=== PATIENT | female | born 1995 | race Two or more races ===

== ENCOUNTER 2024-09-17 16:55 | Emergency (ER) | payer MEDICAID, OTHER ==
[~2024-09-17] VITALS: Ht 177.8 cm; Wt 127.0 kg
[2024-09-17 18:20] VITALS: PULSE 89; RESP 15; O2SAT 98
--- NOTE | 2024-09-17 18:30 | DVH ---
EXAM: CT CERVICAL WITHOUT CONTRAST INDICATION: HEAD INJURY EXAM DATE: 09/17/2024 05:50 PM COMPARISON: None TECHNIQUE: Multiple axial CT images of the cervical spine were obtained using bone algorithm. Axial a nd coronal reformatting was done. Bone and soft tissue windows were reviewed. Radiation Dose Information: CT Dose: CTDI volume is 27.89 mGy. Dose-length product is 660.28 mGy*cm FINDINGS: The cervical alignment is intact. No acute cervical spine fracture is identified. The vertebral body heights are intact. No suspicious osseous lesions are identified. There is straightening of the normal cervical lordotic curve which may be secondary to patient positi oning or muscle spasm. There is no prevertebral soft tissue swelling. IMPRESSION: 1. No evidence of acute cervical spine fracture or traumatic malalignment. 2. No stenosis of the central spinal canal. All CT scans at this medical facility are performed using dose modulation techniques as appropriate t o a performed exam including the following: Automated exposure control was utilized; adjustment of th e MA and/or KV according to patient size; and use of iterative reconstruction technique.
--- NOTE | 2024-09-17 18:34 | ED.PDOC ---
Mult. trauma (HPI) HPI Comments 28-year-old female who came to ER for head injury. Patient was riding a horse earlier, she fell off the horse falling on her side, just as the horse kicked her on the head as she lay on the ground. Positive loss of consciousness. Noted laceration of the left occipital area. Patient currently complaining of headaches. No nausea or vomiting noted Chief Complaint: Head Injury Time Seen by MD: 18:33 Primary Care Provider: UNKNOWN Reviewed notes: Nurses Notes Allergies: Coded Allergies: NO KNOWN ALLERGIES (Unverified , 09/17/24) Information Source: Patient Mode of Arrival: Ambulatory Severity: Moderate Timing: Minutes Duration: Since onset Prehospital treatment: None Location: Head Location of laceration: Head Mechanism: Direct blow, Fall Associated signs and symtoms: Headache Past Medical History PAST MEDICAL HISTORY: HTN Surgical History: Denies all surgeries ULTRASOUND MANAGER History: Denies all ULTRASOUND MANAGER Hx Family History Family History: Reviewed,noncontributory to illness Social History Smoker: Non-Smoker Alcohol: Denies ETOH Use Drugs: Denies Drug Use Lives In: Home Constitutional: denies: chills, diaphoresis, fatigue, fever, malaise, sweats, weakness, others EENTM: denies: blurred vision, double vision, ear bleeding, ear discharge, ear drainage, ear pain, ear ringing, eye pain, eye redness, hearing loss, mouth pain, mouth swelling, nasal discharge, nose bleeding, nose congestion, nose pain, photophobia, tearing, throat pain, throat swelling, voice changes, others Respiratory: denies: cough, hemoptysis, orthopnea, SOB at rest, shortness of breath, SOB with excertion, stridor, wheezing, others Cardiovascular: denies: chest pain, dizzy spells, diaphoresis, Dyspnea on exertion, edema, irregular heart beat, left arm pain, lightheadedness, palpitations, PND, syncope, others Gastrointestinal: denies: abdomen distended, abdominal pain, blood streaked bowels, constipated, diarrhea, dysphagia, difficulty swallowing, hematemesis, melena, nausea, poor appetite, poor fluid intake, rectal bleeding, rectal pain, vomiting, others Genitourinary: denies: abnormal vagina bleeding, burning, dyspareunia, dysuria, flank pain, frequency, hematuria, incontinence, pain, , vagina discharge, urgency, others Neurological: reports: headache; denies: dizziness, fainting, left sided numbness, left sided weakness, numbness, paresthesia, pre-existing deficit, right sided numbness, right sided weakness, seizure, speech problems, tingling, tremors, weakness, others Musculoskeletal: denies: back pain, gout, joint pain, joint swelling, muscle pain, muscle stiffness, neck pain, others Integumetry: reports: laceration (3 cm laceration left occipital area); denies: bruises, change in color, change in hair/nails, dryness, lesions, lumps, rash, wounds, others Allergic/Immunocompromised: denies: Difficulty Healing, Frequent Infections, Hives, Itching, others Hematologic/Lymphatic: denies: anemia, blood clots, easy bleeding, easy bruisin g, swollen glands, others Endocrine: denies: excessive hunger, excessive sweating, excessive thirst, excessive urination, flushing, intolerance to cold, intolerance to heat, unexplained weight gain, unexplained weight loss, others Psychiatric: denies: anxiety, bipolar disorder, depression, hopeless, panic disorder, schizophrenia, sleepless, suicidal, others Physical Exam General Appearance: No Apparent Distress, Normal HEENT: Normal ENT Inspection, Pharynx Normal, TMs Normal, Other (3 cm laceration left occipital area) Neck: Full Range of Motion, Non-Tender, Normal, Normal Inspection Respiratory: Chest Non-Tender, Lungs Clear, No Accessory Muscle Use, No Respiratory Distress, Normal Breath Sounds Cardiovascular: No Edema, No JVD, No Murmur, No Gallop, Normal Peripheral Pulses, Regular Rate/Rhythm Breast Exam: Deferred Gastrointestinal: No Organomegaly, Non Tender, No Pulsatile Mass, Normal Bowel Sounds, Soft Genitalia: Deferred Pelvic: Deferred Rectal: Deferred Extremities: No calf tenderness, Normal capillary refill, Normal inspection, Normal range of motion, Non-tender, No pedal edema Musculoskeletal : Apperance: Normal Neurologic: Alert, team coordinator II-XII nml as Tested, No Motor Deficits, Normal Affect, Normal Mood, No Sensory Deficits Cerebellar Function: Normal Reflexes: Normal Skin: Dry, Normal Color, Warm Lymphatic: No Adenopathy Was a procedure done? Was a procedure done?: Yes Sedation Sedation?: No Laceration Repair : Location Left occipital area Length 3 cm Anesthetic: Lidocaine Laceration Repair Prep: Betadine Laceration Repair Wound Comple: epidermis/dermis repair Laceration Repair: Karol (6) Informed consent obtained: Yes Risks, benefits, and alternati: Yes Differential Diagnosis Multiple Trauma: Closed Head Injury, Cerebral Contusion, Laceration X-Ray, Labs, Meds, VS Vital Signs Date Time Temp Pulse Resp B/P (MAP) Pulse Ox O2 Delivery O2 Flow Rate FiO2 09/17/24 20:00 98.3 96 15 160/123 (135) 99 98.3 09/17/24 19:30 86 11 100 Room Air* 0 21 09/17/24 18:20 89 15 98 Room Air* 0 21 09/17/24 18:20 98.4 89 15 151/110 (124) 98 98.4 09/17/24 17:25 98.4 93 16 142/98 (113) 97 98.4 PROCEDURE(s): CXR1 - CHEST XRAY 1 VIEW EXAMINATION: AP portable chest radiograph CLINICAL HISTORY: Head injury COMPARISON: None FINDINGS: Patient is rotated and leaning to the right. No dominant consolidations. The costophrenic angles appear clear. No definite pleural effusion or pneumothorax. Mild apparent prominence of the Cardiac silhouette may be in part exaggerated by technique. IMPRESSION: No acute cardiopulmonary findings as visualized. Exam: CT HEAD WITHOUT CONTRAST History: HEAD INJURY Technique: [address] images through the posterior fossa and the supratentorial compartment were acquired without contrast and imaged using soft tissue and bone algorithms. RADIATION DOSE: DLP 1060.13 mGy.cm; CTDI vol 59.04 mGy. Comparison: None Findings: There is no evidence of an intracranial hemorrhage, acute large vessel infarct, mass effect, or midline shift. The calvarium, orbits, paranasal sinuses, sella, middle ears, and mastoids are unremarkable. Mild left posterior parietal soft tissue edema. Impression: 1. No acute intracranial abnormality. 2. Mild left posterior parietal soft tissue edema. EXAM: CT CERVICAL WITHOUT CONTRAST INDICATION: HEAD INJURY EXAM DATE: 09/17/2024 05:50 PM COMPARISON: None TECHNIQUE: Multiple axial CT images of the cervical spine were obtained using bone algorithm. Axial and coronal reformatting was done. Bone and soft tissue windows were reviewed. Radiation Dose Information: CT Dose: CTDI volume is 27.89 mGy. Dose-length product is 660.28 mGy*cm FINDINGS: The cervical alignment is intact. No acute cervical spine fracture is identified. The vertebral body heights are intact. No suspicious osseous lesions are identified. There is straightening of the normal cervical lordotic curve which may be secondary to patient positioning or muscle spasm. There is no prevertebral soft tissue swelling. IMPRESSION: 1. No evidence of acute cervical spine fracture or traumatic malalignment. 2. No stenosis of the central spinal canal. CT SCAN ABDOMEN AND PELVIS WITHOUT CONTRAST CLINICAL HISTORY: HEAD INJURY TECHNIQUE: Helical axial images are obtained from the lung bases through the pelvis without oral contrast. No intravenous contrast was administered. Coronal and sagittal reformatted images were generated from thin section reconstructions. One or more of the following radiation dose reduction techniques were used for this examination: automated exposure control, adjustment of the mA and/or kV according to patient size, use of iterative reconstruction technique. COMPARISON: None FINDINGS: LOWER THORAX: Imaged lung bases are grossly clear. ABDOMEN AND PELVIS: Evaluation of visceral and vascular structures is limited due to lack of contrast administration. As visualized, the unenhanced liver, spleen, pancreas and adrenals appear grossly unremarkable. No sizable, radiopaque cholelithiasis or biliary ductal dilatation. No hydroureteronephrosis or sizable, obstructing urinary tract calculi ident ified. No evidence of abdominal aortic aneurysm. No evidence of a bowel obstruction. Normal caliber appendix. No free intraperi toneal air or fluid identified. No sizable bladder calculus. No destructive osseous lesions identified. IMPRESSION: No evidence of acute intra-abdominal/pelvic injury on this noncontrast examination. Time of 1ST Reevaluation: 18:29 Reevaluation 1ST: Unchanged Patient Education/Counseling: Diagnosis, Treatment Family Education/Counseling: No Family Present Departure 1 Departure Time of Disposition: 21:00 Impression: Primary Impression: Head injury Additional Impressions: Low back sprain Scalp laceration Disposition: HOME / SELF CARE / HOMELESS Condition: Stable Discharged With: Self, Spouse Critical Care Note Critical Care Time?: No Stability Stability form required: No Heart Score Heart Score: Heart Score Response (Comments) Value History N/A 0 EKG N/A 0 Age N/A 0 Risk Factors N/A 0 Troponin N/A 0 Total 0 I personally scribed for GÓMEZ JAIN MD ([email or web address]) on 09/17/24 at 18:34. Electronically submitted by Rohit Donahue ([facility]). I personally scribed for GÓMEZ JAIN MD ([email or web address]) on 09/17/24 at 19:18. Electronically submitted by Rohit Donahue ([facility]). I personally scribed for GÓMEZ JAIN MD ([email or web address]) on 09/17/24 at 20:04. Electronically submitted by Rohit Donhaue ([facility]). GÓMEZ JAIN MD Sep 17, 2024 18:34
--- NOTE | 2024-09-17 18:43 | DVH ---
EXAMINATION: AP portable chest radiograph CLINICAL HISTORY: Head injury COMPARISON: None FINDINGS: Patient is rotated and leaning to the right. No dominant consolidations. The costophrenic angles appear clear. No definite pleural effusion or pn eumothorax. Mild apparent prominence of the Cardiac silhouette may be in part exaggerated by techniqu e. IMPRESSION: No acute cardiopulmonary findings as visualized.
--- NOTE | 2024-09-17 19:01 | DVH ---
CT SCAN ABDOMEN AND PELVIS WITHOUT CONTRAST CLINICAL HISTORY: HEAD INJURY TECHNIQUE: Helical axial images are obtained from the lung bases through the pelvis without oral cont rast. No intravenous contrast was administered. Coronal and sagittal reformatted images were generate d from thin section reconstructions. One or more of the following radiation dose reduction techniques were used for this examination: automated exposure control, adjustment of the mA and/or kV according to patient size, use of iterative reconstruction technique. COMPARISON: None FINDINGS: LOWER THORAX: Imaged lung bases are grossly clear. ABDOMEN AND PELVIS: Evaluation of visceral and vascular structures is limited due to lack of contrast administration. As visualized, the unenhanced liver, spleen, pancreas and adrenals appear grossly unremarkable. No si zable, radiopaque cholelithiasis or biliary ductal dilatation. No hydroureteronephrosis or sizable, obstructing urinary tract calculi identified. No evidence of abdominal aortic aneurysm. No evidence of a bowel obstruction. Normal caliber appendix. No free intraperitoneal air or fluid id entified. No sizable bladder calculus. No destructive osseous lesions identified. IMPRESSION: No evidence of acute intra-abdominal/pelvic injury on this noncontrast examination.
[2024-09-17 19:30] VITALS: PULSE 86; RESP 11; O2SAT 100
--- NOTE | 2024-09-17 19:52 | DVH ---
Exam: CT HEAD WITHOUT CONTRAST History: HEAD INJURY Technique: [address] images through the posterior fossa and the supratentorial compart ment were acquired without contrast and imaged using soft tissue and bone algorithms. RADIATION DOSE: DLP 1060.13 mGy.cm; CTDI vol 59.04 mGy. Comparison: None Findings: There is no evidence of an intracranial hemorrhage, acute large vessel infarct, mass effect, or midli ne shift. The calvarium, orbits, paranasal sinuses, sella, middle ears, and mastoids are unremarkable. Mild left posterior parietal soft tissue edema. Impression: 1. No acute intracranial abnormality. 2. Mild left posterior parietal soft tissue edema.
[2024-09-17 20:00] VITALS: BP 160/123; PULSE 96; RESP 15; TEMP 98.3; O2SAT 99
== END 2024-09-17 20:21 | disposition home or self-care (01) ==
LOC: ER 16:55
DX: S01.01XA Laceration without foreign body of scalp, initial encounter (principal); S33.9XXA Sprain of unspecified parts of lumbar spine and pelvis, initial encounter; S09.8XXA Other specified injuries of head, initial encounter; I10 Essential (primary) hypertension; V80.010A Animal-rider injured by fall from or being thrown from horse in noncollision accident, initial encounter; Y93.52 Activity, horseback riding; Y92.89 Other specified places as the place of occurrence of the external cause; Y99.8 Other external cause status
CPT/HCPCS: 12002; 70450; 71045; 72125; 74176